=== PATIENT | female | born 1990 | race Caucasian/White ===

== ENCOUNTER 2019-01-16 15:37 | Emergency (ER) | payer MEDICAID ==
--- NOTE | 2019-01-16 16:16 | EDPHY ---
H & P Stated Complaint: GARCIA Time Seen by Provider: 01/16/19 15:50 HPI/ROS: CHIEF COMPLAINT: Headache HISTORY OF PRESENT ILLNESS: 28-year-old female presents with headache. Onset of intermittent right-sided moderate headache 6 months ago. The headaches have gradually increased and now have been constant for the past 3-4 weeks. Associated with dizziness, left ear discomfort and confusion. The dizziness increases with head movement and sometimes with position change. Feels that she is not thinking clearly and is having trouble driving because of confusion. No recent illness and no head injury. No prior similar symptoms. No trauma or chiropractic manipulation. REVIEW OF SYSTEMS: complete 10 point ROS reviewed and is negative except for the noted elements in the HPI - Personal History Current Tetanus/Diphtheria Vaccine: Yes Current Tetanus Diphtheria and Acellular Pertussis (TDAP): Yes - Medical/Surgical History Hx Asthma: No Hx Chronic Respiratory Disease: No Hx Diabetes: No Hx Cardiac Disease: No Hx Renal Disease: No Hx Cirrhosis: No Hx Alcoholism: No Hx HIV/AIDS: No Hx Splenectomy or Spleen Trauma: No Other PMH: crohn's, appy, ovarian cyst - Social History Smoking Status: Never smoked - Physical Exam Exam: General Appearance: Alert, pleasant Eyes: Pupils equal and round, no conjunctival pallor or injection, EOMI, horizontal nystagmus, fast component to the right ENT, Mouth: Mucous membranes moist Neck: Normal inspection Respiratory: Lungs are clear to auscultation Cardiovascular: Regular rate and rhythm, no murmur Gastrointestinal: Abdomen is soft and nontender Neurological: Alert, oriented x3, cranial nerves II through XII intact, motor 5 /5, sensory intact to light touch, normal gait, normal [id number] testing Skin: Warm and dry Extremities: Normal inspection Psychiatric: Mood and affect normal Constitutional: Initial Vital Signs Temperature (C) 37.1 C 01/16/19 15:41 Heart Rate 63 01/16/19 15:41 Respiratory Rate 16 01/16/19 15:41 Blood Pressure 139/83 H 01/16/19 15:41 O2 Sat (%) 100 01/16/19 15:41 O2 Delivery Mode Room Air Allergies/Adverse Reactions: No Known Allergies Allergy (Unverified 01/16/19 15:40) Home Medications: Medication Instructions Recorded NK [No Known Home Meds] 01/16/19 Medical Decision Making - Diagnostics Imaging Results: Brain MRI 01/16/19 16:01 Impression: 1. Normal brain. There is no evidence of a multifocal demyelinating process. 2. 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 If there is clinical concern for an arachnoid cyst, after neurologic or neurosurgical consultation, a low dose myelographic contrast injection into the subarachnoid space followed by CT of the head with thin sections through the sella turcica could be performed to exclude that unlikely possibility. 3. Small benign pineal cyst, touching the superior colliculus. Results discussed with Dr. Indira Barry at 5:46 PM Imaging: Discussed imaging studies w/ yardage caller Radiologist ED Course/Re-evaluation: This patient presents with a prolonged headache, associated with confusion and lack of balance. Neurologic exam is normal except for horizontal nystagmus. Given the duration and severity of symptoms, concern for MS/tumor/other, will obtain an MRI of the brain. Clinically, no evidence of SAH, meningitis. Antivert 25 mg orally given. MRI is unremarkable, except for the empty sella. Results were discussed with the patient. Vertigo has resolved after Antivert. Discussion with the patient , will give Reglan, Benadryl and Decadron prior to discharge. Hopefully this will help alleviate her headache. I feel that she is safe and stable for discharge home. She will follow up promptly with Neurology. Warning signs discussed. Differential Diagnosis: Headache including but not limited to subarachnoid hemorrhage, tumor, cluster GARCIA , MS, migraine headache, tension headache and infectious causes such as meningitis, pharyngitis and sinusitis. - Data Points Laboratory Results: Laboratory Results 01/16/19 16:17 01/16/19 16:17 Medications Given: Discontinued Medications Dexamethasone (Decadron Injection) 10 mg IVP EDNOW ONE Stop: 01/16/19 18:25 Last Admin: 01/16/19 18:38 Dose: 10 mg Diphenhydramine HCl (Benadryl Injection) 12.5 mg IVP EDNOW ONE Stop: 01/16/19 18:25 Last Admin: 01/16/19 18:30 Dose: 12.5 mg Metoclopramide HCl (Reglan Injection) 10 mg IVP EDNOW ONE Stop: 01/16/19 18:25 Last Admin: 01/16/19 18:34 Dose: 10 mg Departure - Departure Disposition: Home, Routine, Self-Care Clinical Impression: Vertigo Headache Qualifiers: Headache type: new daily persistent Qualified Code(s): G44.52 - New daily persistent headache (NDPH) Condition: Good Instructions: Vertigo (ED), Acute Headache (ED) Additional Instructions: Meclizine 25 mg every 6 hr as needed for vertigo. Referrals: Chinmay Ayala MD [Medical Doctor] - As per Instructions (Call to make an appointment.)
[2019-01-16 16:42] LABS: PLATELET COUNT 222 10^3/uL (150-400)
[2019-01-16] MEDS ORDERED: DEXAMETHASONE 10 MG/ML VIAL IVP ONE (18:24)
[2019-01-16] MEDS ORDERED: METOCLOPRAMIDE 10 MG/2 ML VIAL IVP ONE (18:24)
[2019-01-16 19:24] VITALS: BP 122/69
== END 2019-01-16 19:24 | disposition home or self-care (01) ==
DX: R42 Dizziness and giddiness (principal); G44.52 New daily persistent headache (NDPH); D35.4 Benign neoplasm of pineal gland
CPT/HCPCS: 70551-PN; 96374; J1100; J1200; J2765